=== PATIENT | male | born 1965 | race Caucasian/White ===

== ENCOUNTER → 2023-05-12 07:22 | Outpatient (REF) | payer OTHER, SELFPAY | LOC: PAVMRI 07:22 | PROVIDERS: ATTENDING PHYSICIAN Internal Medicine Endocrinology, Diabetes & Metabolism; FAMILY PHYSICIAN Family Medicine | DX: D35.2 Benign neoplasm of pituitary gland (principal) | CPT/HCPCS: 70553; A9575 ==